=== PATIENT | male | born 1980 | race African-American/Black ===

== ENCOUNTER 2017-01-16 11:55 | Emergency (ER) | payer OTHER ==
[~2017-01-16] VITALS: Ht 182.9 cm; Wt 131.8 kg
[2017-01-16] MEDS ORDERED: ALBU17IN2 INH (12:13)
[2017-01-16] MEDS ORDERED: NS 1,000 ML IV ONE (13:00)
[2017-01-16 13:01] LABS: BASO % 0.4 % (0.0-1.0); EOS # 0.1 10^3/uL (0.0-0.50); EOS % 1.2 % (0.0-3.0); IMMATURE GRANULOCYTE % 0.3 % (0-0); LYMPH # 2.5 10^3/uL (1.5-4.5); LYMPH % 33.4 % (24.0-44.0); MEAN CORPUSCULAR HGB CONC 33.2 g/dl (32.0-36.5); MEAN CORPUSCULAR VOLUME 87.4 fl (80.0-96.0); MONO # 0.6 10^3/uL (0.0-0.8); MONO % 8.2 % (0.0-5.0); NEUTROPHILS # 4.2 10^3/uL (1.8-7.7); NEUTROPHILS % 56.5 % (36.0-66.0); PLATELET COUNT, AUTOMATED 398 10^3/uL (150-450); RED CELL DISTRIBUTION WIDTH 12.7 % (11.5-14.5); WHITE BLOOD COUNT 7.4 10^3/uL (4.0-10.0)
[2017-01-16 13:10] LABS: ADD MANUAL DIFFER NO; DIFF SLIDE NUMBER 250
[2017-01-16 13:39] LABS: ALBUMIN 4.1 GM/DL (3.2-5.2); ALBUMIN/GLOBULIN RATIO 0.85 (1.00-1.93); ALKALINE PHOSPHATASE 46 U/L (45-117); ALT/SGPT 45 U/L (12-78); ANION GAP 7 MEQ/L (8-16); AST/SGOT 17 U/L (15-37); BILIRUBIN,DIRECT 0.1 MG/DL (0.0-0.2); BILIRUBIN,TOTAL 0.6 MG/DL (0.2-1.0); BLOOD UREA NITROGEN 20 MG/DL (7-18); CALCIUM LEVEL 9.6 MG/DL (8.5-10.1); CARBON DIOXIDE LEVEL 30 MEQ/L (21-32); CHLORIDE LEVEL 100 MEQ/L (98-107); CREATININE FOR GFR 1.26 MG/DL (0.70-1.30); GLOMERULAR FILTRATION RATE > 60.0 (>60); GLUCOSE, FASTING 92 MG/DL (70-105); POTASSIUM SERUM 4.2 MEQ/L (3.5-5.1); SODIUM LEVEL 137 MEQ/L (136-145); TOTAL PROTEIN 8.9 GM/DL (6.4-8.2)
[2017-01-16] MEDS ORDERED: KETOROLAC 30 MG/ML VIAL (J1885) IV ONE (13:45)
[2017-01-16] MEDS ORDERED: ONDANSETRON 4MG/2ML VIAL (J2405) IV ONE (13:45)
--- NOTE | 2017-01-16 14:38 | REP ---
Chest x-ray: Two views. History: Left flank pain. Increase with inspiration. . Comparison study: None . Findings: The lungs are well inflated and free of infiltrate. The pleural angles are sharp. The heart size is normal. Pulmonary vasculature is not increased. No significant bony abnormality is seen. Impression: Negative chest x-ray. Signed by Phil Garzon MD 01/16/2017 02:30 P
[2017-01-16] MEDS ORDERED: FLOM5CAP PO (14:54)
[2017-01-16] MEDS ORDERED: CIPR-249 PO (14:54)
[2017-01-16] MEDS ORDERED: CIPROFLOXACIN 500 MG TAB PO ONE (15:00)
[2017-01-16 15:02] VITALS: BP 129/80
--- NOTE | 2017-01-16 15:14 | REP ---
CT abdomen and pelvis without IV or oral contrast: Renal stone protocol. History: Abdomen and flank pain. 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 The lung bases are clear. Minimal linear fibrosis is seen in the left lower lobe. No pleural effusion is seen. There is moderate diffuse fatty infiltration of the liver. No focal liver lesion is seen. No adrenal lesion is observed. Gallbladder and pancreas are unremarkable. No retroperitoneal mass or adenopathy is seen. The kidneys are morphologically intact. No renal stone is seen. There is no evidence of hydronephrosis on either side. Seminal vesicles, prostate and urinary bladder are unremarkable. There is a small umbilical hernia transmitting a small quantity of abdominal fat through a 2.3 cm anterior abdominal wall defect. No other abdominal wall defect is seen. A normal appendix is seen. There are bilateral pelvic phleboliths. Small and large intestinal bowel loops are unremarkable. Impression: 1. Moderate diffuse fatty infiltration of the liver. 2. Otherwise unremarkable CT study abdomen and pelvis without contrast. No urinary tract calculi seen. Normal appendix noted. Signed by Phil Garzon MD 01/16/2017 03:34 P
== END 2017-01-16 15:08 | disposition home or self-care (01) ==
LOC: M ED 11:55
DX: N39.0 Urinary tract infection, site not specified (principal); K76.0 Fatty (change of) liver, not elsewhere classified; J45.909 Unspecified asthma, uncomplicated
CPT/HCPCS: 71020; 74176; 80048; 80076; 81001; 83690; 85025; 87086; 96374; 96375; 99283; J1885; J2405